=== PATIENT | female | born 1960 | race Caucasian/White ===

== ENCOUNTER 2017-03-01 10:14 | Emergency (ER) | payer OTHER ==
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
[2017-03-01 12:42] VITALS: BP 149/91
== END 2017-03-01 12:36 | disposition home or self-care (01) ==
LOC: ER 10:14
DX: M79.642 Pain in left hand (principal); V87.7XXA Person injured in collision between other specified motor vehicles (traffic), initial encounter; F17.200 Nicotine dependence, unspecified, uncomplicated
CPT/HCPCS: 99284